=== PATIENT | female | born 1970 | race Caucasian/White ===

== ENCOUNTER 2017-03-13 22:45 | Inpatient (IN) | payer MEDICAID ==
[~2017-03-13] VITALS: Ht 157.5 cm; Wt 69.4 kg
[2017-03-13] MEDS ORDERED: NALOXONE HCL 1 MG/ML 2 ML SYG IVP ONE (23:00)
[2017-03-13] MEDS ORDERED: OXYC10 PO (23:01)
[2017-03-13 23:22] LABS: BASOPHILS # (AUTO) 0.03 K/uL (0.00-0.20); BASOPHILS % (AUTO) 0.4 % (0.0-2.0); EOSINOPHILS # (AUTO) 0.14 K/uL (0.00-0.70); EOSINOPHILS % (AUTO) 1.77 % (1.0-6.0); HEMATOCRIT 40.1 % (36-46); HEMOGLOBIN 13.3 g/dL (12.0-16.0); LYMPHOCYTES % (AUTO) 37.8 % (22.0-44.0); MEAN CORPUSCULAR HEMOGLOBIN 31.1 pg (26.0-34.0); MEAN CORPUSCULAR HGB CONC 33.1 G/dL (31.0-37.0); MEAN CORPUSCULAR VOLUME 94 fL (80-100); MONOCYTES # (AUTO) 0.7 K/uL (0.1-1.0); MONOCYTES % (AUTO) 8.3 % (2.0-9.0); NEUTROPHILS # (AUTO) 4.1 K/uL (1.8-7.7); NEUTROPHILS % (AUTO) 51.8 % (40.0-70.0); PLATELET COUNT (AUTO) 332 K/uL (150-450); RED BLOOD CELL COUNT(AUTO) 4.27 MIL/uL (4.00-5.20); RED CELL DISTRIBUTION WIDTH 12.8 % (11.5-14.5)
[2017-03-13 23:34] LABS: SALICYLATE < 2.8 mg/dL (2.8-20.0)
[2017-03-13 23:41] LABS: ALANINE AMINOTRANSFERASE 49 U/L (12-78); ALBUMIN 3.3 g/dL (3.4-5.0); ALKALINE PHOSPHATASE 113 U/L (46-116); ANION GAP 12 mmol/L (8-16); ASPARTATE AMINOTRANSFERASE 39 U/L (15-37); BILIRUBIN,TOTAL 0.2 mg/dL (0.1-1.0); CALCIUM, TOTAL 8.1 mg/dL (8.8-10.5); CARBON DIOXIDE 27 mmol/L (22-29); CHLORIDE 107 mmol/L (98-107); CREATININE 0.48 mg/dL (0.60-1.30); GLOMERULAR FILTR. RATE CALC > 60 mL/min (>60); GLUCOSE,RANDOM 137 mg/dL (70-110); SODIUM SERUM 146 mmol/L (136-145); TOTAL PROTEIN, SERUM 7.6 g/dL (6.4-8.2); UREA NITROGEN, BLOOD 4 mg/dL (7-18)
[2017-03-13 23:50] LABS: APPEARANCE,URINE CLEAR (CLEAR); BILIRUBIN,URINE NEGATIVE (NEGATIVE); GLUCOSE, URINE (UA) NEGATIVE (NEGATIVE); KETONES,URINE NEGATIVE (NEGATIVE); LEUKOCYTE ESTERASE ,URINE NEGATIVE (NEGATIVE); NITRATE,URINE NEGATIVE (NEGATIVE); OCCULT BLOOD,URINE NEGATIVE (NEGATIVE); PROTEIN,URINE TRACE (NEGATIVE); UROBILINOGEN,URINE 0.2 mg/dL (<=1.0)
[2017-03-13 23:54] LABS: ACETAMINOPHEN 35 mcg/mL (10-30)
[2017-03-13 23:55] LABS: AMPHET/METH SCREEN,URINE NEGATIVE (NEGATIVE); BARBITURATE SCREEN, URINE NEGATIVE (NEGATIVE); BENZODIAZEPINES SCREEN,URINE NEGATIVE (NEGATIVE); CANNABINOID SCREEN,URINE NEGATIVE (NEGATIVE); COCAINE SCREEN,URINE NEGATIVE (NEGATIVE); METHADONE SCREEN, URINE NEGATIVE (NEGATIVE); OPIATE SCREEN,URINE POSITIVE (NEGATIVE); PHENCYCLIDINE SCREEN,URINE NEGATIVE (NEGATIVE)
[2017-03-14] LABS: BACTERIA,URINE None Seen /HPF (None Seen); RBC,URINE None Seen /HPF (0-2); WBC,URINE None Seen /HPF (0-5)
[2017-03-14] MEDS ORDERED: POTASSIUM CHLORIDE 20 MEQ ER TABLET PO ONE (03:00)
[2017-03-14] MEDS ORDERED: ZOLPIDEM TARTRATE 10 MG TABLET PO PRN (03:15)
[2017-03-14] MEDS ORDERED: LORazepam 2 MG TABLET PO PRN (03:15)
[2017-03-14] MEDS ORDERED: HALOPERIDOL 5 MG TABLET PO PRN (03:15)
[2017-03-14] MEDS ORDERED: DEXTROSE 5% IV ONE ×5 (04:15→10:00)
[2017-03-14] MEDS ORDERED: WATER IV ONE ×5 (04:15→10:00)
[2017-03-14] MEDS ORDERED: ACETYLCYSTEINE IV ONE ×5 (04:15→10:00)
[2017-03-14] MEDS ORDERED: 0.9% SODIUM CHLORIDE 10 ML SYRINGE IVP PRN (06:30)
[2017-03-14 08:30] VITALS: BP 131/80
[2017-03-14 09:50] LABS: ALANINE AMINOTRANSFERASE 52 U/L (12-78); ALKALINE PHOSPHATASE 93 U/L (46-116); ANION GAP 11 mmol/L (8-16); ASPARTATE AMINOTRANSFERASE 36 U/L (15-37); BILIRUBIN,TOTAL 0.1 mg/dL (0.1-1.0); CALCIUM, TOTAL 7.7 mg/dL (8.8-10.5); CARBON DIOXIDE 25 mmol/L (22-29); CHLORIDE 108 mmol/L (98-107); CREATININE 0.56 mg/dL (0.60-1.30); GLOMERULAR FILTR. RATE CALC > 60 mL/min (>60); GLUCOSE,RANDOM 178 mg/dL (70-110); SODIUM SERUM 144 mmol/L (136-145); TOTAL PROTEIN, SERUM 7.4 g/dL (6.4-8.2); UREA NITROGEN, BLOOD 7 mg/dL (7-18)
[2017-03-14 12:05] VITALS: BP 130/78
[2017-03-14] MEDS ORDERED: ONDANSETRON HCL 4 MG/2 ML VIAL IM PRN (12:30)
[2017-03-14] MEDS ORDERED: INFLUENZA VIRUS VACCINE QVS 2017-18 (3YR+)/PF 60 MCG/0.5 ML SYRINGE IM ONE (13:00)
[2017-03-14] MEDS ORDERED: ONDANSETRON HCL 4 MG/2 ML VIAL IVP PRN ×2 (13:00→14:00)
[2017-03-14] MEDS ORDERED: MORPHINE SULFATE 2 MG/ML SYRINGE IVP PRN (14:00)
[2017-03-14] MEDS ORDERED: HYDROCODONE/ACETAMINOPHEN 5-325 MG TABLET PO PRN (14:00)
[2017-03-14] MEDS ORDERED: BISACODYL 10 MG RECTAL RECTAL SUPPOSITORY PR PRN (14:00)
[2017-03-14] MEDS ORDERED: ACETAMINOPHEN 325 MG TABLET PO PRN (14:00)
[2017-03-14] MEDS ORDERED: ZOLPIDEM TARTRATE 5 MG TABLET PO PRN (14:00)
[2017-03-14] MEDS ORDERED: SODIUM CHLORIDE 0.9% 1,000 ML IV ONE (14:00)
[2017-03-14 16:12] VITALS: BP 122/67
[2017-03-14] MEDS ORDERED: POTASSIUM CHLORIDE 20 MEQ ER TABLET PO PRN (16:45)
[2017-03-14] MEDS ORDERED: POTASSIUM CHL 10 MEQ/WATER 50 ML IV PRN (16:45)
[2017-03-14] MEDS: POTASSIUM CHLORIDE 20 MEQ ER TABLET PO PRN (17:00)
[2017-03-14 20:06] VITALS: BP 120/74
[2017-03-14] MEDS: DOCUSATE SODIUM 100 MG CAPSULE PO SCH (20:38)
[2017-03-15 00:03] VITALS: BP 134/68
[2017-03-15 05:00] VITALS: BP 110/65
[2017-03-15 07:55] VITALS: BP 124/82
[2017-03-15] MEDS: DOCUSATE SODIUM 100 MG CAPSULE PO SCH ×2 (08:34→20:15)
[2017-03-15] MEDS: PANTOPRAZOLE SODIUM 40 MG DR TABLET PO SCH (08:34)
[2017-03-15 11:24] VITALS: BP 118/76
[2017-03-15] MEDS: POTASSIUM CHLORIDE 20 MEQ ER TABLET PO PRN (14:43)
[2017-03-15 19:24] VITALS: BP 119/72
[2017-03-15] MEDS: MAGNESIUM HYDROXIDE SUSPENSION 30 ML UDCUP PO PRN (20:15)
[2017-03-15 22:08] VITALS: BP 115/70
[2017-03-16 00:04] VITALS: BP 119/65
[2017-03-16 04:37] VITALS: BP 109/63
[2017-03-16 07:42] VITALS: BP 126/76
[2017-03-16] MEDS: PANTOPRAZOLE SODIUM 40 MG DR TABLET PO SCH (08:06)
[2017-03-16] MEDS: DOCUSATE SODIUM 100 MG CAPSULE PO SCH (08:06)
[2017-03-16 11:00] VITALS: BP 107/62
[2017-03-16] MEDS: MAGNESIUM HYDROXIDE SUSPENSION 30 ML UDCUP PO PRN (14:53)
== END 2017-03-16 15:00 | disposition home or self-care (01) | DRG 812 ==
LOC: EMS 22:48 → EEVIPCON 22:48 → 5S 03-14 06:45 → 5N 03-14 10:01 → 6N 03-15 21:42
PROVIDERS: ADMIT Internal Medicine; ATTEND Internal Medicine
DX: T40.2X2A Poisoning by other opioids, intentional self-harm, initial encounter (principal); G92 Toxic encephalopathy; F33.2 Major depressive disorder, recurrent severe without psychotic features; E87.6 Hypokalemia; F17.210 Nicotine dependence, cigarettes, uncomplicated; F41.9 Anxiety disorder, unspecified; R73.9 Hyperglycemia, unspecified; Y93.89 Activity, other specified; Y99.8 Other external cause status; Y92.89 Other specified places as the place of occurrence of the external cause; Z98.891 History of uterine scar from previous surgery
CPT/HCPCS: 84132; 90471; 96365; 96366; 96375; 99285; G0480; G0481; J0132; J2310; J2405; J7030; J7060